=== PATIENT | male | born 1960 | race Native Hawaiian/Other Pacific Islander ===

== ENCOUNTER 2017-09-02 10:07 | Outpatient (CLI) | payer BC | END 2017-09-02 21:52 | disposition home or self-care (01) | LOC: RAD 10:07 | DX: M25.561 Pain in right knee (principal); M54.42 Lumbago with sciatica, left side ==

== ENCOUNTER 2020-02-10 10:00 | Outpatient (CLI) | payer BC | END 2020-02-10 19:46 | disposition home or self-care (01) | LOC: RAD 10:00 | DX: M25.562 Pain in left knee (principal); M25.561 Pain in right knee; M54.5 Low back pain ==

== ENCOUNTER 2020-04-26 08:48 | Outpatient (CLI) | payer BC | END 2020-04-26 19:19 | disposition home or self-care (01) | LOC: US 08:48 | DX: R20.2 Paresthesia of skin (principal) ==

== ENCOUNTER 2021-05-22 11:45 | Outpatient (CLI) | payer BC ==
[2021-05-22 12:20] LABS: PLATELET COUNT 229 K/uL (142-355)
[2021-05-22 12:36] LABS: POTASSIUM 3.8 mmol/L (3.6-5.2)
== END 2021-05-22 21:09 | disposition home or self-care (01) ==
LOC: LABW 11:45 → RESP 11:45 → LABW 21:09
PROVIDERS: ATTEND Nurse Practitioner Family
DX: I44.0 Atrioventricular block, first degree (principal); R22.43 Localized swelling, mass and lump, lower limb, bilateral
CPT/HCPCS: 36415; 80053; 83880; 85027; 85379; 93225

== ENCOUNTER 2021-12-20 13:40 | Outpatient (CLI) | payer BC | END 2021-12-20 21:42 | disposition home or self-care (01) | LOC: MRI 13:40 | PROVIDERS: ATTEND Neurological Surgery | DX: M54.50 Low back pain, unspecified (principal) ==

== ENCOUNTER 2022-02-28 14:59 | Outpatient (CLI) | payer BC | END 2022-02-28 18:58 | disposition home or self-care (01) | LOC: US 14:59 | PROVIDERS: ATTEND Nurse Practitioner Family | DX: N50.89 Other specified disorders of the male genital organs (principal) ==